=== PATIENT | female | born 1995 | race Asian ===

== ENCOUNTER 2021-12-26 05:43 | Inpatient (IN) | payer SELFPAY ==
[2021-12-26] VITALS (28 sets, daily range): BP systolic 99–141; BP diastolic 56–83; PULSE 63–111; TEMP 97.9–98.8
[~2021-12-26] VITALS: Ht 162.6 cm; Wt 83.5 kg
--- NOTE | 2021-12-26 05:35 | NUR ---
0535- PT PRESENTS TO LDR BY EMS COMPLAINING OF CONTRACTION PAIN AND BLEEDING. TO ROOM LR4 AND TRANSFERRED TO BED FROM EMS CART. 0540- AMNITRACE NEGATIVE, SVE BY THIS NURSE 5-2 WITH NO FLUID POOLING AND NO BLOOD NOTED ON GLOVE AFTER EXAM. EMS REPORTS PT HAD PAD ON AND NURSE EXAMINES PAD FOR BLEEDING. ONLY SMALL AMOUNT OF OLD [place] BLOODY DISCHARGE NOTED. 0545- EFM X2 APPLIED. PT UNCOMFORTABLE AND WOULD LIKE HER EPIDURAL AT THIS TIME. 0555- LR INFUSING IN SITE OBTAINED BY EMS IN RIGHT WRIST. DR ELLINGTON CALLED AND UPDATED CHARTED. ORDER FOR ADMISSION BUT NO EPIDURAL AT THIS TIME. 0600- PT UPDATED ON PLAN OF CARE FOR VERIFYING PRESENTATION PRIOR TO EPIDURAL PLACEMENT. CONSENTS SIGNED AT THIS TIME.
[2021-12-26] MEDS ORDERED: PRENATAL (06:31)
[2021-12-26 07:09] LABS: BASO % 0.1 % (0.0-2.0); EOS % 0.3 % (0.0-4.0); GRAN # 12.9 K/mm3 (1.4-6.5); GRAN % 82.6 % (42.2-75.2); HEMATOCRIT 40.4 % (37.0-47.0); HEMOGLOBIN 13.8 g/dl (12.5-16.0); LYMPH # 1.8 K/mm3 (1.2-3.4); LYMPH % 11.2 % (20.0-51.0); MEAN CELL VOLUME 90 fl (80.0-100.0); MEAN CORPUSCULAR HEMOGLOBIN 31 pg (27-31); MEAN CORPUSCULAR HGB CONC 34 g/dl (33.0-37.0); MEAN PLATELET VOLUME 9.6 fl (7.4-10.4); MONO # 0.8 K/mm3 (0.1-0.6); MONO % 5.2 % (1.7-9.3); PLATELET COUNT 252 K/mm3 (130-400); RED BLOOD COUNT 4.49 M/mm3 (4.10-5.30); REDCELL DISTRIBUTION WIDTH-CV 12.7 % (11.5-14.5)
--- NOTE | 2021-12-26 07:30 | NUR ---
0730- PATIENT SAT UP FOR EPIDURAL. DIFFICULTY MAINTAINING HEART TONE TRACING DUE TO POSITIONING. SERGE ABBOTT CRNA IN ROOM FOR PLACEMENT. 0733- TEST DOSE ADMINISTERED Pauline ABBOTT CRNA. PATIENT TOLERATED WELL, VITAL SIGNS STABLE. 0735- BOLUS DOSE ADMINISTERED [place] ABBOTT CRNA. PATIENT TOLERATED WELL, VITAL SIGNS STABLE. PATIENT REPOSITIONED IN BED ON LEFT SIDE, REPOSITIONED EFM. UPDATED ON SAFETY AND PLAN OF CARE.
--- NOTE | 2021-12-26 07:50 | NUR ---
DR. CHAWLA AT BEDSIDE. BEDSIDE SONOGRAM CONFIRMED VERTEX PRESENTATION.
--- NOTE | 2021-12-26 08:33 | NUR ---
0833-Maternal BP 95/54. Denies dizziness or symptoms of hypotension. 0840-Maternal BP 100/61, 10 mg IV ephedrine given per verbal order and verification with Esme Berumen CRNA. 0847-Maternal 115/65, Dr. Valles on unit. MD updated on patient. MD reviews FHR. 0904-SVE by C/+2 station, Buldging bag of fluid protruding from vagina, AROm by MD, clear fluid noted. Tiffanie care provided.
--- NOTE | 2021-12-26 09:20 | NUR ---
0920-Straight catheter, clear yellow urine return. 0927-Patient begins pushing with this RN. Moves vertex. Difficulty tracing contractions via toco. This RN frequently readjusting EFM. 0940-Dr. Valles to room to evaluate pushing efforts. Orders given to start pit at 2mu/min. See EMAR. remains on unit at desk.
--- NOTE | 2021-12-26 10:54 | NUR ---
1045-Updated Dr. Valles who remains at unit desk on pushing efforts. No new orders. reviews FHR monitor.
--- NOTE | 2021-12-26 11:00 | NUR ---
1100-Dr. Valles to patient room. MD pushes with patient. Patient moves vertex well. MD reviews recurrent decels and deep decels with ptaient. Patient desires to continue to push without assistance of vacuum or forceps at this time. Rn assumes pushing efforts with patient. 1115-Dr. Valles returns to patient room. Patient and MD decide to proceed with vacuum assistance. 1122- MD places vacuum inside vagina, pressure applied. Patient begins pushing with contraction while MD pulls with vacuum. Pop off x2. 1125-Vacuum assisted vaginal delivery of viable male attended by Dr. Valles. Infant nares and mouth suctioned with bulb suction and placed on mothers abdomen. Care of infant assumed by SCOTT Gaviria apgars 8/8/9. Cord gasses collected by . 1130-Spontaneous delivery of intact placenta by . Johnathan JEFFREY. Fundal massage firm. Pitocin bolus per MD order and prtotocol. Second degree perineal laceration repaired by Dr. Valles. Tiffanie care provided. Updated on plan of care and safety.
--- NOTE | 2021-12-26 14:00 | NUR ---
1400-Unable to bilateral leg lift hold for 5 sec at this time. Placed on bed lyons and able to void 300ml clear yellow urine. Tiffanie care provided. Ice to perineum.
[2021-12-27 08:20] VITALS: BP 112/61; PULSE 79; TEMP 97.9
[2021-12-27 16:38] VITALS: BP 110/64; PULSE 71; TEMP 97.8
[2021-12-27 21:15] VITALS: BP 111/71; PULSE 69; TEMP 98
[2021-12-28 07:45] VITALS: BP 114/64; PULSE 76; TEMP 98.2
[2021-12-28] MEDS ORDERED: IBU600 MG PO (09:00)
[2021-12-28] MEDS ORDERED: SENEXON-S 50-81 EACH PO (09:01)
== END 2021-12-28 15:00 | disposition home or self-care (01) | DRG 807 ==
LOC: LDRO 05:43 → LDR 05:49 → OB 16:45
PROVIDERS: Obstetrics & Gynecology; ADMIT Obstetrics & Gynecology
PROC: 10D07Z6 Extraction of Products of Conception, Vacuum, Via Natural or Artificial Opening (ICD-10-PCS; principal; 2021-12-26)
PROC: 0KQM0ZZ Repair Perineum Muscle, Open Approach (ICD-10-PCS; 2021-12-26)
DX: O48.0 Post-term pregnancy (principal); Z37.0 Single live birth; O35.8XX0 Maternal care for other (suspected) fetal abnormality and damage, not applicable or unspecified; O36.5930 Maternal care for other known or suspected poor fetal growth, third trimester, not applicable or unspecified; O43.123 Velamentous insertion of umbilical cord, third trimester; O70.1 Second degree perineal laceration during delivery; Z3A.40 40 weeks gestation of pregnancy
CPT/HCPCS: J2590; J3010; J7120